=== PATIENT | female | born 1975 | race Caucasian/White ===

== ENCOUNTER → 2019-07-14 | Outpatient (CLI) | payer OTHER | LOC: CARD 09:59 | PROVIDERS: ATTEND Family Medicine | DX: R07.9 Chest pain, unspecified (principal); R00.2 Palpitations ==

== ENCOUNTER → 2022-06-13 | Outpatient (CLI) | payer OTHER ==
--- NOTE | 2022-06-13 13:02 | Diagnostic Imaging Report ---
PROCEDURE: US Gallbladder. TECHNIQUE: Multiple real-time grayscale images were obtained over the right upper quadrant in various projections. INDICATION: Right upper quadrant pain. EXAMINATION: Ultrasound gallbladder 06/13/2022. FINDINGS: The liver has a normal echotexture with no focal masses identified. There is no intrahepatic or extrahepatic biliary dilitation. The common bile duct is within normal limits. The gallbladder wall is not thickened. There is no pericholecystic fluid. No gallstones are identified. There is a negative sonographic Fulton's sign per the blueprint trimmer. Visualized pancreas is unremarkable with portions not well seen due to overlying bowel gas. Visualized aorta and IVC are within normal limits. Right kidney measures 11.2 cm in length. Several echogenic foci likely stones the largest of which measures 0.7 cm in greatest dimension. There is no hydronephrosis. IMPRESSION: 1. Nonobstructive stones right kidney. Otherwise unremarkable visualized right upper quadrant structures. Dictated by: Dictated on workstation # [id number]
== END ==
LOC: RAD 10:13
PROVIDERS: ATTEND Nurse Practitioner Family
DX: N20.0 Calculus of kidney (principal)
CPT/HCPCS: 76705

== ENCOUNTER → 2022-06-19 | Outpatient (CLI) | payer OTHER ==
--- NOTE | 2022-06-19 11:12 | Diagnostic Imaging Report ---
INDICATION: History of right renal stones and right upper quadrant pain. EXAMINATION: CT abdomen and pelvis without contrast on 06/19/2022. FINDINGS: The lung bases are clear. The liver, spleen, adrenal glands, pancreas, and gallbladder are unremarkable. There is no nephrolithiasis. No hydronephrosis. No ureteral stones. The appendix appears normal. There is diverticular disease in the left colon and sigmoid. No evidence for acute diverticulitis. There is no ascites. No free air. A small fat-containing umbilical hernia is noted. There is no acute osseous abnormality. IMPRESSION: 1. No acute process in the abdomen or pelvis. Diverticular disease is noted without evidence for diverticulitis. 2. No nephrolithiasis or hydronephrosis. Dictated by: Dictated on workstation # [id number]
== END ==
LOC: RAD 10:41
PROVIDERS: ATTEND Family Medicine
DX: N20.0 Calculus of kidney (principal); K57.30 Diverticulosis of large intestine without perforation or abscess without bleeding
CPT/HCPCS: 74176